=== PATIENT | male | born 2000 | race Two or more races ===

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

== ENCOUNTER 2021-12-30 19:40 | Emergency (ER) | payer OTHER ==
[~2021-12-30] VITALS: Ht 170.2 cm; Wt 54.4 kg
[2021-12-30] MEDS ORDERED: CIPRO500 MG PO (20:34)
== END 2021-12-30 20:42 | disposition home or self-care (01) ==
LOC: ER 19:40
DX: S81.851A Open bite, right lower leg, initial encounter (principal); W55.01XA Bitten by cat, initial encounter; Y93.01 Activity, walking, marching and hiking; Y92.410 Unspecified street and highway as the place of occurrence of the external cause; Z88.0 Allergy status to penicillin

== ENCOUNTER 2022-01-27 03:39 | Emergency (ER) | payer OTHER ==
[~2022-01-27] VITALS: Ht 170.2 cm; Wt 53.5 kg
[~2022-01-27 03:39] MED LIST changes: +CIPRO500 MG PO
== END 2022-01-27 10:20 | disposition home or self-care (01) ==
LOC: ER 03:39
DX: R50.9 Fever, unspecified (principal); R11.10 Vomiting, unspecified; Z20.822 Contact with and (suspected) exposure to COVID-19

== ENCOUNTER 2023-08-01 10:03 | Outpatient (CLI) | payer OTHER | END 2023-08-01 10:25 | disposition home or self-care (01) | LOC: SONOGRAMA 10:03 | PROVIDERS: ATTEND General Practice | DX: N45.1 Epididymitis (principal) ==

== ENCOUNTER 2024-12-17 08:45 | Outpatient (CLI) | payer OTHER | END 2024-12-17 08:47 | disposition home or self-care (01) | LOC: SONOGRAMA 08:45 | PROVIDERS: ATTEND Urology | DX: N45.3 Epididymo-orchitis (principal); I86.1 Scrotal varices ==